=== PATIENT | female | born 1935 | race Caucasian/White ===

== ENCOUNTER 2023-11-06 18:41 | Emergency (ER) | payer MEDICARE, OTHER ==
[~2023-11-06] VITALS: Ht 160 cm; Wt 80.0 kg
[~2023-11-06 18:41] MED LIST: ALEN70TA80 PO; ASPI81TA40 PO; CALC-189 PO; LISI20TA PO; LORA10TA7 PO; METF-444 PO; MULT1CAP42 PO; PIOG30TA10 PO; SIMV-43 PO
[2023-11-06 19:00] VITALS: BP 155/79; PULSE 92; RESP 16; TEMP 98.3; O2SAT 98
[2023-11-06] MEDS ORDERED: CELE200 PO (19:35)
[2023-11-06] MEDS: KETOROLAC TROMETHAMINE 30 MG/ML VIAL IM ONE (19:42)
== END 2023-11-06 20:37 | disposition home or self-care (01) ==
LOC: EMS 18:42
DX: M17.0 Bilateral primary osteoarthritis of knee (principal); E11.9 Type 2 diabetes mellitus without complications; E78.00 Pure hypercholesterolemia, unspecified; I10 Essential (primary) hypertension; Z98.51 Tubal ligation status; Z88.2 Allergy status to sulfonamides
CPT/HCPCS: 99283; 96372; J1885

== ENCOUNTER 2025-02-13 21:46 | Inpatient (IN) | payer OTHER ==
[~2025-02-13] VITALS: Ht 160 cm; Wt 74.2 kg
[~2025-02-13 21:46] MED LIST changes: +GABA-529 PO; +LEVO750T68 PO; -LISI20TA PO; -METF-444 PO; -PIOG30TA10 PO; +SIMV-260 PO; +SODI100067 PO
[2025-02-13] MEDS: SODIUM CHLORIDE 0.9% 1,000 ML IV ONE (23:35)
[2025-02-13 23:45] LABS: PLATELET COUNT (AUTO) 308 K/uL (150-450); RED BLOOD CELL COUNT(AUTO) 3.83 MIL/uL (4.00-5.20); RED CELL DISTRIBUTION WIDTH 13.6 % (11.5-14.5); WHITE BLOOD COUNT (AUTO) 9.0 K/uL (4.5-11.0)
[2025-02-13 23:53] LABS: CALCIUM, TOTAL 8.3 mg/dL (8.8-10.5); CREATININE 2.79 mg/dL (0.60-1.30); GLOMERULAR FILTR. RATE CALC 16 mL/min (>60); GLUCOSE,RANDOM 113 mg/dL (70-110); UREA NITROGEN, BLOOD 57 mg/dL (7-18)
[2025-02-13 23:55] LABS: SODIUM SERUM 122 mmol/L (136-145)
[2025-02-13 23:59] LABS: ASPARTATE AMINOTRANSFERASE 20.0 U/L (15-37); TOTAL PROTEIN, SERUM 6.8 g/dL (6.4-8.2)
[2025-02-14 00:03] LABS: TROPONIN I-HIGH SENSITIVITY 9 ng/L (<51)
[2025-02-14] MEDS ORDERED: ONDANSETRON HCL 4 MG/2 ML VIAL IVP PRN (00:15)
[2025-02-14] MEDS ORDERED: MAGNESIUM HYDROXIDE SUSPENSION 30 ML UDCUP PO PRN (00:15)
[2025-02-14] MEDS ORDERED: DEXTROSE 50%-WATER 25 GM/50 ML SYRINGE IVP PRN (00:30)
[2025-02-14] MEDS ORDERED: INSULIN LISPRO 100 UNITS/ML SQ PRN (00:30)
[2025-02-14] MEDS: SODIUM CHLORIDE 0.9% 1,000 ML IV ONE (00:55)
[2025-02-14 01:56] LABS: APPEARANCE,URINE TURBID (CLEAR); GLUCOSE, URINE (UA) NEGATIVE (NEGATIVE); LEUKOCYTE ESTERASE ,URINE LARGE (NEGATIVE); NITRATE,URINE NEGATIVE (NEGATIVE); OCCULT BLOOD,URINE MODERATE (NEGATIVE); SPECIFIC GRAVITIY, URINE 1.013 (1.003-1.030)
[2025-02-14 02:13] LABS: LACTIC ACID 0.9 mmol/L (0.4-2.0)
[2025-02-14 02:18] LABS: SQUAMOUS EPITHELIAL CELL,UR Rare /LPF (None Seen)
[2025-02-14 02:20] LABS: SULFOSALICYLIC ACID,URINE 3+ (Negative)
[2025-02-14] MEDS: SODIUM CHLORIDE 0.9% 500 ML IV ONE (02:55)
[2025-02-14] MEDS: CefTRIAXone 1 GM/DEXTROSE 50 ML IV ONE (02:55)
[2025-02-14 04:38] VITALS: BP 115/62; PULSE 81; RESP 19; TEMP 97; O2SAT 97
[2025-02-14 06:34] LABS: CALCIUM, TOTAL 7.7 mg/dL (8.8-10.5); CREATININE 2.45 mg/dL (0.60-1.30); GLOMERULAR FILTR. RATE CALC 19.0 mL/min (>60); GLUCOSE,RANDOM 95.0 mg/dL (70-110); SODIUM SERUM 126.0 mmol/L (136-145); UREA NITROGEN, BLOOD 53.0 mg/dL (7-18)
[2025-02-14 07:44] VITALS: BP 103/63; PULSE 75; RESP 16; TEMP 97.9; O2SAT 98
[2025-02-14] MEDS: HEPARIN SODIUM,PORCINE 5,000 UNITS/ML VIAL SQ SCH (08:26)
[2025-02-14] MEDS: DOCUSATE SODIUM 100 MG CAPSULE PO SCH (08:26)
[2025-02-14] MEDS: FAMOTIDINE 20 MG TABLET PO SCH (08:26)
[2025-02-14] MEDS: ACETAMINOPHEN 325 MG TABLET PO PRN (08:39)
[2025-02-14] MEDS: SODIUM CHLORIDE 0.9% 1,000 ML IV SCH (10:21)
[2025-02-14 11:22] VITALS: BP 101/59; PULSE 64; RESP 16; TEMP 97.9; O2SAT 96
[2025-02-14 15:20] VITALS: BP 98/50; PULSE 74; RESP 18; TEMP 97.3; O2SAT 95
[2025-02-14 20:29] VITALS: BP 106/54; PULSE 71; RESP 19; TEMP 97.9; O2SAT 100
[2025-02-15] VITALS: BP 105/68; PULSE 77; RESP 18; TEMP 97.9; O2SAT 98
[2025-02-15] MEDS: MELATONIN 3 MG TABLET PO PRN (01:20)
[2025-02-15] MEDS: CefTRIAXone 1 GM/DEXTROSE 50 ML IV SCH (02:49)
[2025-02-15 06:54] LABS: PLATELET COUNT (AUTO) 293 K/uL (150-450); RED BLOOD CELL COUNT(AUTO) 3.39 MIL/uL (4.00-5.20); RED CELL DISTRIBUTION WIDTH 14.2 % (11.5-14.5); WHITE BLOOD COUNT (AUTO) 7.9 K/uL (4.5-11.0)
[2025-02-15 07:00] LABS: CALCIUM, TOTAL 7.8 mg/dL (8.8-10.5); CREATININE 2.26 mg/dL (0.60-1.30); GLOMERULAR FILTR. RATE CALC 20.0 mL/min (>60); GLUCOSE,RANDOM 80.0 mg/dL (70-110); SODIUM SERUM 128.0 mmol/L (136-145); UREA NITROGEN, BLOOD 49.0 mg/dL (7-18)
[2025-02-15 07:01] LABS: GLUCOSE,POINT OF CARE 91 MG/DL (70-110)
[2025-02-15 07:01] LABS: GLUCOSE,POINT OF CARE 95 MG/DL (70-110)
[2025-02-15 07:01] LABS: GLUCOSE,POINT OF CARE 95 MG/DL (70-110)
[2025-02-15 07:01] LABS: GLUCOSE,POINT OF CARE 98 MG/DL (70-110)
[2025-02-15 08:00] VITALS: BP 119/61; PULSE 82; RESP 18; TEMP 97.5; O2SAT 98
[2025-02-15 12:07] VITALS: BP 125/68; PULSE 85; RESP 18; TEMP 97.6; O2SAT 97
[2025-02-15 12:35] LABS: GLUCOSE,POINT OF CARE 92 MG/DL (70-110)
[2025-02-15 16:25] VITALS: BP 118/66; PULSE 73; RESP 18; TEMP 98; O2SAT 100
[2025-02-15 20:31] VITALS: BP 127/57; PULSE 98; RESP 20; TEMP 98.1; O2SAT 98
[2025-02-15 22:44] VITALS: BP 128/71; PULSE 87; RESP 18; TEMP 98.8; O2SAT 97
[2025-02-16 03:06] LABS: GLUCOSE,POINT OF CARE 106 MG/DL (70-110)
[2025-02-16 03:07] LABS: GLUCOSE,POINT OF CARE 106 MG/DL (70-110)
[2025-02-16 04:38] VITALS: BP 121/72; PULSE 79; RESP 18; TEMP 97.9; O2SAT 99
[2025-02-16 06:42] LABS: CALCIUM, TOTAL 8.4 mg/dL (8.8-10.5); CREATININE 1.53 mg/dL (0.60-1.30); GLOMERULAR FILTR. RATE CALC 32.0 mL/min (>60); GLUCOSE,RANDOM 84.0 mg/dL (70-110); SODIUM SERUM 131.0 mmol/L (136-145); UREA NITROGEN, BLOOD 37.0 mg/dL (7-18)
[2025-02-16 07:21] LABS: GLUCOMETER DEV NAME(LOC) 4E.2; GLUCOSE,POINT OF CARE 92 MG/DL (70-110)
[2025-02-16 09:14] VITALS: BP 127/68; PULSE 83; RESP 18; O2SAT 98
[2025-02-16] MEDS: CIPROFLOXACIN HCL 250 MG TABLET PO SCH (10:10)
[2025-02-16 19:51] LABS: GLUCOMETER DEV NAME(LOC) 4E.2; GLUCOSE,POINT OF CARE 135 MG/DL (70-110)
[2025-02-16 20:00] VITALS: BP 137/80; PULSE 82; RESP 18; TEMP 97.7; O2SAT 99
[2025-02-16 21:10] LABS: GLUCOMETER DEV NAME(LOC) 4E.2; GLUCOSE,POINT OF CARE 111 MG/DL (70-110)
[2025-02-17] MEDS ORDERED: SODIUM CHLORIDE 0.9% 500 ML IV ONE (02:01)
[2025-02-17 04:00] VITALS: BP 128/83; PULSE 89; RESP 18; TEMP 97.9; O2SAT 99
[2025-02-17 06:58] LABS: CALCIUM, TOTAL 8.8 mg/dL (8.8-10.5); CREATININE 1.05 mg/dL (0.60-1.30); GLOMERULAR FILTR. RATE CALC 49.0 mL/min (>60); GLUCOSE,RANDOM 94.0 mg/dL (70-110); SODIUM SERUM 134.0 mmol/L (136-145); UREA NITROGEN, BLOOD 26.0 mg/dL (7-18)
[2025-02-17 08:23] VITALS: BP 137/87; PULSE 67; RESP 19; TEMP 97.9; O2SAT 99
[2025-02-17 09:21] LABS: GLUCOMETER DEV NAME(LOC) 4E.2; GLUCOSE,POINT OF CARE 85 MG/DL (70-110)
[2025-02-17] MEDS ORDERED: CEPH-558 PO (10:30)
[2025-02-17 15:21] VITALS: BP 149/79; PULSE 88; RESP 18; TEMP 98; O2SAT 99
[2025-02-17 17:50] LABS: GLUCOMETER DEV NAME(LOC) 4E.2; GLUCOSE,POINT OF CARE 101 MG/DL (70-110)
== END 2025-02-17 15:00 | disposition home health service (06) | DRG 683 ==
LOC: EMS 21:46 → EDH 02-14 00:11 → 5S 02-14 04:38 → 4E 02-15 22:20
PROVIDERS: ADMIT Internal Medicine; ATTEND Internal Medicine
DX: N17.9 Acute kidney failure, unspecified (principal); E87.1 Hypo-osmolality and hyponatremia; D64.9 Anemia, unspecified; E11.9 Type 2 diabetes mellitus without complications; E78.00 Pure hypercholesterolemia, unspecified; N39.0 Urinary tract infection, site not specified; I10 Essential (primary) hypertension; Z79.82 Long term (current) use of aspirin; Z79.899 Other long term (current) drug therapy; Z88.2 Allergy status to sulfonamides; Z83.3 Family history of diabetes mellitus
CPT/HCPCS: 71045; 80048; 80076; 81001; 81002; 82962; 83605; 83690; 83735; 83880; 84484; 85025; 87077; 87086; 93005; 96360; 97110; 97163; 97167; 97530; 97535; 99285; G0378; J0696; J1644; J7030; J7040; 36415-L1; 36415-TC